=== PATIENT | female | born 1985 | race Caucasian/White ===

== ENCOUNTER 2024-10-18 13:43 | Emergency (ER) | payer BC, OTHER ==
[2024-10-18] MEDS ORDERED: HYDROCODONE/APAP 5/325 MG TAB ONE (13:54)
--- NOTE | 2024-10-18 14:49 | RAD REPORT ---
EXAMINATION: XR RIGHT KNEE CLINICAL INDICATION: Female, 39 years old. PAIN TECHNIQUE: Multiple views of the right knee were obtained. COMPARISON: No prior exam. FINDINGS: Mild medial compartment space narrowing. No fracture, dislocation or joint effusion.
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
[2024-10-18 16:17] VITALS: TEMP 97.3; O2SAT 100
[2024-10-18 16:19] VITALS: BP 113/62
== END 2024-10-18 15:59 | disposition home or self-care (01) ==
LOC: ER 13:43
DX: M25.561 Pain in right knee (principal)
CPT/HCPCS: 99284